=== PATIENT | male | born 1965 | race Caucasian/White ===

== ENCOUNTER 2019-12-09 19:18 | Emergency (ER) | payer SELFPAY ==
[2019-12-09 19:20] VITALS: BP 180/101; PULSE 78; RESP 20; TEMP 37.1; O2SAT 100
--- NOTE | 2019-12-09 19:20 | ED.OVERDOSE ---
HPI - Overdose General Chief Complaint: Overdose Stated Complaint: EMS Arrival Time Seen by Provider: 12/09/19 19:20 Source: patient, EMS and RN notes reviewed Mode of arrival: EMS Limitations: altered mental status History of Present Illness HPI Narrative: Patient brought in by EMS. On arrival they found him with agonal breathing pinpoint pupils cyanotic. He was given 2 mg intranasal Narcan with no response then given 4 mg IV push and became completely awake and alert. Patient states that he did some fentanyl he snorted a capsule of fentanyl powder. He also smoked some crystal meth earlier in the day and also smokes marijuana. complaint: accidental overdose Onset (ago): minute(s) (30) Timing confirmed by: family member Intent: other ( drug use) How Overdose Was Discovered: family/friend present at time Context: Accidental Overdose: wanted to get high Treatments Prior to Arrival: narcan Related Data Home Medications Medication Instructions Recorded Confirmed Unable to Obtain Home Medications 12/09/19 12/09/19 Review of Systems Review of Systems: All systems reviewed & are unremarkable except as noted in HPI and below PMFSH Social History Social History Gender identity (if verbalized by the patient): Male Sexual Orientation (if Verbalized by the Patient): Straight or Heterosexual Exam Const: General: healthy appearing, no acute distress and alert Nutritional Appearance: well nourished Orientation/consciousness: patient oriented x3 HENMT: Head: normal to inspection General nose exam: Normal external nose present Face and sinus: normal facial exam Mouth: Yes lip normal Eyes: Pupils: Pinpoint pupils (reactive) bilaterally EOM: EOMs intact bilaterally Neck: Neck: normal visual inspection Resp: Effort & Inspection: normal respiratory effort Auscultation: clear to auscultation bilaterally Cardio: Rate: regular rate Rhythm: regular rhythm Heart sounds: Murmur heart sound present diastolic early, mid and II/; without radiation GI: GI Palp: Yes Soft to palpation and No Tenderness to palpation present (GI) Auscultation: normal bowel sounds Back/Spine/Pelvis: Cervical Spine: cervical ROM normal Thoracic/Lumbar Spine: thoraco-lumbar ROM normal Skin: General skin exam: normal color Rashes: no rashes Neuro: General: patient oriented x3, moves all extremities, no meningeal signs and no focal motor deficits Speech: normal speech Motor exam (neuro): 5/5 motor strength present throughout and Motor abnormalities not present Extrem: General: normal to inspection and no clubbing, cyanosis or edema Psych: Appearance: grossly normal and well kempt Mental Status: mental status grossly normal Affect: Anxious affect present Attitude: cooperative Thought content: Yes Normal thought content present Course Vital Signs Vital signs: Vital Signs Temperature 37.1 C 12/09/19 19:20 Pulse Rate 78 12/09/19 19:20 Respiratory Rate 20 12/09/19 19:20 Blood Pressure 180/101 H 12/09/19 19:20 Pulse Oximetry 100 12/09/19 19:20 Temperature 37.1 C 12/09/19 19:20 Pulse Rate 70 12/09/19 20:18 Respiratory Rate 18 12/09/19 20:18 Blood Pressure 136/74 12/09/19 20:18 Pulse Oximetry 98 12/09/19 20:18 MDM - Overdose Lab Data Result diagrams: 12/09/19 19:43 12/09/19 19:43 Labs: Lab Results 12/09/19 12/09/19 12/09/19 Range/Units 19:43 19:43 20:25 WBC 10.0 (4.8-10.8) K/mm3 RBC 4.18 L (4.70-6.10) M/mm3 Hgb 13.5 L (14.0-18.0) g/dL Hct 40.3 (40.0-54.0) % MCV 96.4 (78.0-102.0) fL MCH 32.3 H (27.0-31.0) pg MCHC 33.5 (32.0-36.0) g/dL RDW 12.4 (11.6-14.4) % Plt Count 321 (150-420) K/mm3 MPV 8.9 (8.7-11.0) fl Immature Gran % (Auto) 0.3 H (0.0-0.0) % Neut % (Auto) 56.5 (50.0-70.0) % Lymph % (Auto) 30.3 (18.0-42.0) % Todd % (Auto) 7.6 (2.0-11.0) % Eos % (Auto) 4.7 (1.0-6.0) % Baso % (
--- NOTE | 2019-12-09 19:32 | PC.NURSE ---
during nurse interview patient said took 20 fentanyl capsules, upon MD interview number changed to 1.
[2019-12-09 19:40] VITALS: BP 150/90; PULSE 88; RESP 18; O2SAT 97
[2019-12-09 19:48] LABS: Basophils Absolute Auto 0.06 K/mm3 (0.00-0.10); Basophils Percent Auto 0.6 % (0.0-1.0); Eosinophils Absolute Auto 0.47 K/mm3 (0.02-0.50); Eosinophils Percent Auto 4.7 % (1.0-6.0); Hematocrit 40.3 % (40.0-54.0); Hemoglobin 13.5 g/dL (14.0-18.0); Immature Granulocyte Absolute 0.03 K/mm3 (0.00-0.00); Immature Granulocyte Percent A 0.3 % (0.0-0.0); Lymphocytes Absolute Auto 3.02 K/mm3 (1.10-4.50); Lymphocytes Percent Auto 30.3 % (18.0-42.0); Mean Corpuscular HGB Conc 33.5 g/dL (32.0-36.0); Mean Corpuscular Hemoglobin 32.3 pg (27.0-31.0); Mean Corpuscular Volume 96.4 fL (78.0-102.0); Mean Platelet Volume 8.9 fl (8.7-11.0); Monocytes Absolute Auto 0.76 K/mm3 (0.10-0.90); Monocytes Percent Auto 7.6 % (2.0-11.0); Neutrophils Absolute Auto 5.6 K/mm3 (1.7-7.2); Neutrophils Percent Auto 56.5 % (50.0-70.0); Platelet Count Result 321 K/mm3 (150-420); Red Blood Count 4.18 M/mm3 (4.70-6.10); Red Cell Distribution Width 12.4 % (11.6-14.4)
[2019-12-09 20:00] VITALS: BP 140/87; PULSE 82; RESP 18; O2SAT 98
[2019-12-09 20:11] LABS: Alanine Aminotransferase 24 U/L (16-63); Albumin Level 3.6 g/dL (3.4-5.0); Alkaline Phosphatase 68 U/L (46-116); Aspartate Amino Transferase 21 U/L (15-37); Bilirubin,Total 0.2 mg/dL (0.00-1.00); Blood Urea Nitrogen 20 mg/dL (7-18); Calcium 8.5 mg/dL (8.5-10.1); Carbon Dioxide 31 mmol/L (21-32); Estimated CRCL calculation 61 ml/min; Estimated Glomerular Filt Rate > 60; Glucose 145 mg/dL (70-99); Total Protein 6.9 g/dL (6.4-8.2)
[2019-12-09 20:18] VITALS: BP 136/74; PULSE 70; RESP 18; O2SAT 98
[2019-12-09 20:39] LABS: Amphetamine Screen Urine Positive (Negative); Barbiturate Screen Urine Negative (Negative); Benzodiazepines Screen Urine Negative (Negative); Cannabinoid Screen Urine Negative (Negative); Cocaine Screen Urine Negative (Negative); Methadone Screen Urine Negative (Negative); Opiate Screen Urine Negative (Negative); Phencyclidine Screen Urine Negative (Negative)
[2019-12-09 20:47] LABS: Anion Gap 6.2 mmol/L (7-16); Chloride 105 mmol/L (98-108); Osmolality Calculated 291 mOsm/kg (285-295); Potassium 4.2 mmol/L (3.5-5.1); Sodium 138 mmol/L (136-145)
[2019-12-09 21:20] VITALS: BP 130/72; PULSE 90; RESP 18; TEMP 36.1; O2SAT 98
--- NOTE | 2019-12-09 21:39 | PC.NURSE ---
IV infusing upon arrival, IV completed at 2000
[2019-12-09] MEDS: SODIUM CHLORIDE 0.9% IV 500 ML 999 ML IV CONT (21:41)
== END 2019-12-09 21:08 | disposition home or self-care (01) ==
PROVIDERS: Emergency Provider Emergency Medicine
DX: T40.4X1A Poisoning by other synthetic narcotics, accidental (unintentional), initial encounter (principal); T43.621A Poisoning by amphetamines, accidental (unintentional), initial encounter; F12.90 Cannabis use, unspecified, uncomplicated
CPT/HCPCS: 36415; 80053; 80307; 85025; 96360; 99283; J7040